=== PATIENT | female | born 1985 | race Caucasian/White ===

== ENCOUNTER 2016-04-13 17:06 | Emergency (ER) | payer OTHER ==
[~2016-04-13] VITALS: Ht 154.9 cm; Wt 47.6 kg
[~2016-04-13 17:06] MED LIST: IBUPROFEN600 M1 PO; TRAMADOL HCL50 M1 PO
--- NOTE | 2016-04-13 17:37 | ED GI/GU/ABDOMINAL COMPLAINT ---
History of Present Illness General Chief Complaint: Abdominal Pain/Flank Pain Stated Complaint: R FLANK PAIN Source: patient Exam Limitations: no limitations Vital Signs & Intake/Output Vital Signs & Intake/Output Vital Signs Date Time Temp Pulse Resp B/P Pulse O2 O2 Flow FiO2 Ox Delivery Rate 04/13 1953 97.1 82 16 90/54 99 Room Air Room Air 04/13 1837 Room Air Room Air 04/13 1724 97.6 80 20 102/68 98 Room Air ED Intake and Output 04/14 0000 04/13 1200 Intake Total 1000 Output Total Balance 1000 Intake, IV 1000 Patient 105 lb Weight Allergies Coded Allergies: phenazopyridine (Intermediate, HEART RACING 10/21/15) cefazolin (HIVES ALL OVER 04/13/16) Reconcile Medications Tramadol HCl 50 MG TABLET 1-2 TAB PO Q6 PRN pain Triage Note: RECEIVED 30 YO FEMALE C/O RIGHT LOWER QUARENT ABDOMINAL PAIN X 3 DAYS, RADIATING TO BACK. NO C/O N/V/D. NO BLEEDING NOTED. LMP 04/02/16. PT REPORTS SOME BLOOD IN URINE Triage Nurses Notes Reviewed? yes ? N Is pt currently ? No HPI: Patient is a 30 year old female presents complaining of right lower abdominal pain onset 3 days ago. Pain is a pressure/thorbbing/sharp pain worsens with walking. Patient has been taking Tylenol with no improvement. Hematuria yesterday. Pain with urination, but does not feel like a burning sensation. Decreased urine output today. Denies fevers, chills, vaginal bleeding, vaginal discharge. (KRISTOFER STRAUSS) Past History Travel History Traveled to [place] past 21 day No Medical History Any Pertinent Medical History? see below for history Neurological: NONE EENT: NONE Cardiovascular: NONE Respiratory: NONE Gastrointestinal: NONE Hepatic: KIDNEY FAILURE 2014 Renal: NONE Musculoskeletal: NONE Psychiatric: NONE Endocrine: NONE Surgical History Surgical History: tonsillectomy, LEEP procedure Psychosocial History What is your primary language Portuguese Tobacco Use: Current Daily Use Daily Tobacco Use Amount/Type: => 5 Cigarettes daily Illicit Drug Use: marijuana Family History Hx Contributory? No (KRISTOFER STRAUSS) Review of Systems Review of Systems Constitutional: Reports: chills. Denies: fever. EENTM: Reports: no symptoms. Respiratory: Denies: cough, short of breath. Cardiovascular: Denies: chest pain. GI: Reports: see HPI. Genitourinary: Reports: see HPI. Musculoskeletal: Reports: back pain. Skin: Reports: no symptoms. Neurological/Psychological: Reports: no symptoms. Hematologic/Endocrine: Reports: no symptoms. Immunologic/Allergic: Reports: no symptoms. (KRISTOFER STRAUSS) Physical Exam Physical Exam General Appearance: well developed/nourished, alert, awake Head: atraumatic, normal appearance Eyes: Bilateral: normal appearance, PERRL, EOMI. Ears, Nose, Throat, Mouth: hearing grossly normal Neck: normal inspection, supple, full range of motion Respiratory: no respiratory distress Cardiovascular: regular rate/rhythm Gastrointestinal: normal bowel sounds, soft, RLQ tenderness, negative tang's sign, negative rovsing's sign Back: normal inspection, normal range of motion, CVA tenderness (R) Extremities: normal range of motion Neurologic/Psych: no motor/sensory deficits, awake, alert, oriented x 3, normal gait, normal mood/affect Skin: intact, normal color, warm/dry Core Measures ACS in differential dx? No Severe Sepsis Present: No Septic Shock Present: No (KRISTOFER STRAUSS) Progress Differential Diagnosis: AAA, AMI, appendicitis, bowel obstruction, diverticulitis, ectopic , gastritis, hepatitis, hernia, ischemic bowel, inflamm bowel dis, ovarian torsion, pancreatitis, PID/cervicitis, PUD/GERD, perforated viscous, SBO, threatened AB, UTI/pyelo Plan of Care: Orders Procedure Date/time Status URINE 04/13 1746 Complete URINALYSIS 04/13 1746 Complete LIPASE 04/13 1746 Complete COMPREHENSIVE METABOLIC PANEL 04/13 1746 Complete CBC WITHOUT DIFFERENTIAL 04/13 1746 Complete Laboratory Tests 04/13/16 1830: CBC w Diff NO MAN DIFF REQ, RBC 4.65, MCV 90.3, MCH 30.1, RDW 13.0, MPV 8.9, Gran % 45.8, Lymphocytes % 42.4, Monocytes % 8.1, Eosinophils % 3.2, Basophils % 0.5, Absolute Granulocytes 4.7, Absolute Lymphocytes 4.4 H, Absolute Monocytes 0.8 H, Absolute Eosinophils 0.3, Absolute Basophils 0, PUBS MCHC 33.4, Urine Color YEL, Urine Clarity CLEAR, Urine pH 6.0, Ur Specific Hollenberg 1.010, Urine Protein NEG, Urine Ketones NEG, Urine Nitrite NEG, Urine Bilirubin NEG, Urine Urobilinogen 0.2, Ur Leukocyte Esterase NEG, Ur Microscopic EXAM NOT REQUIRED, Urine Hemoglobin NEG, Urine Glucose NEG, Urine Test NEGATIVE 04/13/161746: Anion Gap 7, Estimated GFR > 60, BUN/Creatinine Ratio 11.7, Glucose 83, Calcium 9.7, Total Bilirubin 0.3, AST 20, ALT 24, Alkaline Phosphatase 35, Total Protein 6.4, Albumin 3.9, Globulin 2.5, Albumin/Globulin Ratio 1.6, Lipase 30 1930: Results of labs and CT scan discussed with patient. Patient is afebrile, nontoxic appearing No peritoneal signs on exam. Appears stable for discharge. (JOSE ELLER,KRISTOFER) Diagnostic Imaging: Viewed by Me: Radiology Read. Discussed w/RAD: Radiology Read. Radiology Impression: PATIENT: MOISÉS KELLY PRESENT AGE: 30 PATIENT ACCOUNT NO: [id number] : 87 LOCATION: [facility] ORDERING PHYSICIAN: KRISTOFER ELLER SERVICE DATE: 04/13/16 EXAM TYPE: CAT - CT ABD & PELVIS W/O IV CONTRAS EXAMINATION: CT ABDOMEN AND PELVIS WITHOUT CONTRAST CLINICAL INFORMATION: Right-sided abdominal pain. Right lower quadrant tenderness. Right CVA tenderness. COMPARISON: None TECHNIQUE: Multidetector volumetric imaging was performed from the superior aspect of the liver through the pubic symphysis. Sagittal and coronal reformatted images were obtained on the technologist's workstation. No oral or intravenous contrast DLP: 245.06 mGy-cm FINDINGS: LUNG BASES: The visualized lung bases are unremarkable. LIVER, GALLBLADDER, AND BILIARY TREE: The liver is normal in size, shape, and attenuation. No focal hepatic lesion or biliary ductal dilatation is present. The gallbladder is unremarkable with no evidence of radiopaque gallstones, gallbladder wall thickening, or obvious pericholecystic inflammatory changes. PANCREAS: Unremarkable. SPLEEN: Unremarkable. ADRENAL GLANDS: Unremarkable. KIDNEYS AND URETERS: 1.6 cm cyst at the upper pole of right kidney. The kidneys are normal in size, shape, and attenuation. No hydronephrosis, hydroureter, or calculi seen. No perinephric stranding. BLADDER: Unremarkable. GASTROINTESTINAL TRACT: The small and large bowel are unremarkable. Moderate volume of stool in colon. The appendix is normal caliber with no edema. ABDOMINAL WALL: No significant hernia is appreciated. LYMPH NODES: Normal. VASCULAR: Unremarkable. PELVIC VISCERA: Unremarkable. Uterus is anteverted. No adnexal abnormality. Small amount of fluid in the cul-de-sac which can be physiologic. OSSEOUS STRUCTURES: Unremarkable. IMPRESSION: No acute abnormality CT scan abdomen pelvis. No abnormality of kidneys ureter bladder. Normal appendix. DICTATED BY: MARYAN GREENBERG MD DATE/TIME DICTATED:04/13/161919 COMMUNITY LIAISON:IVA DATE/TIME TRANSCRIBED:04/13/161919 CONFIDENTIAL, DO NOT COPY WITHOUT APPROPRIATE AUTHORIZATION. <Electronically signed in Other Vendor System> SIGNED BY: MARYAN GREENBERG MD 04/13/161927 Initial ED EKG: none (KRISTOFER STRAUSS) Departure Departure Time of Disposition: 1934 Disposition: HOME OR SELF CARE Condition: Stable Clinical Impression Primary Impression: Abdominal pain Qualifiers: Abdominal location: right lower quadrant Qualified Code: R10.31 - Right lower quadrant pain Referrals: KO KNIGHT MD PATIENT HAS NO PRIMARY CARE DR (PCP/Family) LIANET JOSHI MD Additional Instructions: Apply heat to the affected area. Follow up with Dr. Joshi(joinery setter out) and with Dr. Knight(primary doctor) for further evaluation. Return to the ER if fevers or worsening of symptoms. Departure Forms: Customer Survey General Discharge Information Prescriptions: Current Visit Scripts Tramadol HCl 1-2 TAB PO Q6 PRN pain #15 TAB (KRISTOFER STRAUSS) PA/MEDICAL ILLUSTRATOR Co-Sign Statement Statement: ED Attending supervision documentation- [] I saw and evaluated the patient. I have also reviewed all the pertinent lab results and diagnostic results. I agree with the findings and the plan of care as documented in the PA's/MEDICAL ILLUSTRATOR's documentation. [X] I have reviewed the ED Record and agree with the PA's/MEDICAL ILLUSTRATOR's documentation. [] Additions or exceptions (if any) to the PAs/MEDICAL ILLUSTRATOR's note and plan are summarized below: [] (MILADIS MONTAGUE,CHATO Squires)
[2016-04-13 18:45] LABS: ABSOLUTE BASOPHIL COUNT 0 /CUMM (0.0-0.2); ABSOLUTE EOSINOPHIL COUNT 0.3 /CUMM (0.0-0.7); ABSOLUTE GRANULOCYTE CT 4.7 /CUMM (1.4-6.5); ABSOLUTE LYMPH COUNT 4.4 /CUMM (1.2-3.4); ABSOLUTE MONOCYTE COUNT 0.8 /CUMM (0.10-0.60); BASOPHIL % 0.5 % (0.0-2.0); EOSINOPHIL % 3.2 % (0-5); GRANULOCYTE % 45.8 % (42.2-75.2); MEAN CORPUSCULAR HGB 30.1 PG (27.0-31.0); MEAN CORPUSCULAR HGB CONC 33.4 G/DL (33.0-37.0); MEAN CORPUSCULAR VOLUME 90.3 FL (81.0-99.0); MEAN PLATELET VOLUME 8.9 FL (7.4-10.4); PLATELET COUNT 180 /CUMM (130-400); RED BLOOD CELL CT 4.65 /CUMM (4.20-5.40); WHITE BLOOD CELL COUNT 10.3 /CUMM (4.8-10.8)
--- NOTE | 2016-04-13 19:28 | CT SCAN REPORT ---
EXAMINATION: CT ABDOMEN AND PELVIS WITHOUT CONTRAST CLINICAL INFORMATION: Right-sided abdominal pain. Right lower quadrant tenderness. Right CVA tenderness. COMPARISON: None TECHNIQUE: Multidetector volumetric imaging was performed from the superior aspect of the liver through the pubic symphysis. Sagittal and coronal reformatted images were obtained on the technologist's workstation. No oral or intravenous contrast DLP: 245.06 mGy-cm FINDINGS: LUNG BASES: The visualized lung bases are unremarkable. LIVER, GALLBLADDER, AND BILIARY TREE: The liver is normal in size, shape, and attenuation. No focal hepatic lesion or biliary ductal dilatation is present. The gallbladder is unremarkable with no evidence of radiopaque gallstones, gallbladder wall thickening, or obvious pericholecystic inflammatory changes. PANCREAS: Unremarkable. SPLEEN: Unremarkable. ADRENAL GLANDS: Unremarkable. KIDNEYS AND URETERS: 1.6 cm cyst at the upper pole of right kidney. The kidneys are normal in size, shape, and attenuation. No hydronephrosis, hydroureter, or calculi seen. No perinephric stranding. BLADDER: Unremarkable. GASTROINTESTINAL TRACT: The small and large bowel are unremarkable. Moderate volume of stool in colon. The appendix is normal caliber with no edema. ABDOMINAL WALL: No significant hernia is appreciated. LYMPH NODES: Normal. VASCULAR: Unremarkable. PELVIC VISCERA: Unremarkable. Uterus is anteverted. No adnexal abnormality. Small amount of fluid in the cul-de-sac which can be physiologic. OSSEOUS STRUCTURES: Unremarkable. IMPRESSION: No acute abnormality CT scan abdomen pelvis. No abnormality of kidneys ureter bladder. Normal appendix.
[2016-04-13] MEDS ORDERED: TRAMADOL HCL50 M1 PO (19:37)
[2016-04-13 19:54] VITALS: BP 90/54
== END 2016-04-13 19:53 ==
LOC: ERH 17:06
PROVIDERS: Physician Assistant
DX: R10.31 Right lower quadrant pain (principal)
CPT/HCPCS: 74176; 81003; 81025; 96374